=== PATIENT | male | born 1955 | race Caucasian/White ===

== ENCOUNTER → 2021-05-12 | Outpatient (CLI) | payer BC ==
[~2021-05-12] MED LIST: AMLO-186 PO; ASPI-630 PO; OXYC-325 PO; PANT40TA77 PO; RAMI10CA53 PO; SIMV20TA18 PO
== END ==
LOC: LAB 10:13
PROVIDERS: ATTEND Surgery
DX: Z01.812 Encounter for preprocedural laboratory examination (principal); Z20.822 Contact with and (suspected) exposure to COVID-19; K40.90 Unilateral inguinal hernia, without obstruction or gangrene, not specified as recurrent
CPT/HCPCS: U0003; U0005

== ENCOUNTER 2021-05-14 06:15 | Day surgery (SDC) | payer BC ==
[~2021-05-14] VITALS: Ht 182.9 cm; Wt 73.5 kg
[~2021-05-14 06:15] MED LIST changes: +ACETAMINOPHEN 500 MG TABLET PO PRN; -AMLO-186 PO; -ASPI-630 PO; +HYDROmorphone 2 MG/ML VIAL IVP PRN; +IV RINGERS,LACTATED 1000ML 1,000 ML IV SCH; -OXYC-325 PO; -PANT40TA77 PO; +PROCHLORPERAZINE 10 MG/2 ML VIAL. IVP PRN; -RAMI10CA53 PO; -SIMV20TA18 PO; +ceFAZolin SODIUM IV Push 1 GM VIAL. IVP PRN; +fentaNYL PF VIAL 100 MCG/2 ML VIAL IVP PRN
[2021-05-14] MEDS ORDERED: SIMV20TA18 PO (06:45)
[2021-05-14] MEDS ORDERED: PANT40TA77 PO (06:45)
[2021-05-14] MEDS ORDERED: ASPI-630 PO (06:45)
[2021-05-14] MEDS ORDERED: RAMI10CA53 PO (06:45)
[2021-05-14] MEDS ORDERED: AMLO-186 PO (06:45)
[2021-05-14 06:48] VITALS: BP 146/77
[2021-05-14] MEDS ORDERED: BUPIVACAINE-EPI 0.25%-1:200000 MPF 30 ML VIAL. ONE (07:24)
[2021-05-14] MEDS ORDERED: MINERAL OIL for SURGERY 10 ML VIAL. MC ONE (07:24)
[2021-05-14] MEDS ORDERED: fentaNYL PF VIAL 100 MCG/2 ML VIAL ONE ×2 (07:29→08:45)
--- NOTE | 2021-05-14 07:46 | PDOC1 ---
History and Physical Date of Admission Date of Admission DATE: 05/14/21 TIME: 07:44 Identification/Chief Complaint Chief Complaint Left groin pain Source Source: Patient History of Present Illness History of Present Illness 65-year-old male with complaints of left groin pain consistent with a left inguinal hernia Past Medical History Cardiovascular: HTN, Hyperlipidemia Pulmonary: No pertinent hx GI: GERD Heme/Onc: No pertinent hx Hepatobiliary: No pertinent hx Psych: No pertinent hx Rheumatologic: No pertinent hx Infectious disease: No pertinent hx ENT: No pertinent hx Renal/: No pertinent hx Endocrine: No pertinent hx Dermatology: No pertinent hx Past Surgical History Past Surgical History: No pertinent history Family History Family History: No Significant Social History Smoke: No ALCOHOL: none Drugs: None Current Medications Current Medications Current Medications Fentanyl Citrate (Fentanyl 2ml Vial) 25 mcg PRN Q5MIN PRN IVP MILD PAIN 1-3; Start 05/14/21 at 06:00; Stop 05/15/21 at 05:59 Fentanyl Citrate (Fentanyl 2ml Vial) 50 mcg PRN Q5MIN PRN IVP MODERATE PAIN 4- 6; Start 05/14/21 at 06:00; Stop 05/15/21 at 05:59 Morphine Sulfate (Morphine Sulfate) 1 mg PRN Q10MIN PRN IVP SEVERE PAIN 7-10; Start 05/14/21 at 06:00; Stop 05/15/21 at 05:59 Ringer's Solution 1,000 ml @ 30 mls/hr Q24H IV Last administered on 05/14/21at 06:51; Start 05/14/21 at 06:00; Stop 05/14/21 at 17:59 Hydromorphone HCl (Dilaudid) 0.5 mg PRN Q10MIN PRN IVP SEVERE PAIN 7-10, 2nd CHOICE; Start 05/14/21 at 06:00; Stop 05/15/21 at 05:59 Prochlorperazine Edisylate (Compazine) 5 mg PACU PRN PRN IVP NAUSEA, MRX1; Start 05/14/21 at 06:00; Stop 05/15/21 at 05:59 Acetaminophen (Tylenol) 1,000 mg 1X PREOP PRN PO PRIOR TO PROCEDURE Last administered on 05/14/21at 06:51; Start 05/14/21 at 06:00; Stop 05/14/21 at 18:00 Cefazolin Sodium (Ancef) 1 gm 1X PREOP PRN IVP PRIOR TO PROCEDURE; Start 05/13/21 at 16:45 Mineral Oil (Muri-Lube) 10 ml STK-MED ONCE MC ; Start 05/14/21 at 07:24; Stop 05/14/21 at 07:25; Status DC Bupivacaine HCl/ Epinephrine Bitart (Sensorcaine-Epi 0.25%-1:181992 Mpf) 30 ml STK-MED ONCE .ROUTE ; Start 05/14/21 at 07:24; Stop 05/14/21 at 07:25; Status DC Fentanyl Citrate (Fentanyl 2ml Vial) 100 mcg STK-MED ONCE .ROUTE ; Start 05/14/21 at 07:29; Stop 05/14/21 at 07:29; Status DC Active Scripts Active Reported Pantoprazole Sodium (Pantoprazole Sodium) 40 Mg Tablet.dr 40 Mg PO DAILYAC Aspirin 81 Mg Tab.chew 1 Tab PO DAILY Ramipril 10 Mg Capsule 1 Cap PO DAILY 30 Days Simvastatin 20 Mg Tablet 1 Tab PO QHS Amlodipine Besylate 5 Mg Tablet 5 Mg PO DAILY Allergies Allergies: Coded Allergies: No Known Drug Allergies (Unverified , 05/14/21) ROS Genitourinary: YES Pain (Left groin) Physical Exam General: Alert, Oriented X3, Cooperative, No acute distress HEENT: Atraumatic, EOMI Lungs: Clear to auscultation, Normal air movement Heart: RRR, no murmurs Abdomen: Normal bowel sounds, Soft, No tenderness Male Genitals Exam: other (Left inguinal hernia) Rectal Exam: not examined Extremities: No edema Skin: No significant lesion Neuro: Normal speech Psych/Mental Status: Mental status NL Vitals Vitals Vital Signs Date Time Temp Pulse Resp B/P (MAP) Pulse Ox O2 Delivery O2 Flow Rate FiO2 05/14/21 06:48 97.9 72 20 99 97.9 05/14/21 06:36 146/77 Room Air VTE Prophylaxis Ordered VTE Prophylaxis Devices: Yes VTE Pharmacological Prophylaxi: Contraindicated Assessment/Plan Assessment/Plan Left inguinal hernia plan robotic assisted laparoscopic left inguinal hernia repair Justifications for Admission Other Justification AMY ROTH MD May 14, 2021 07:46
[2021-05-14] MEDS ORDERED: ROCURONIUM 50 MG/5 ML VIAL. ONE (07:54)
[2021-05-14] MEDS ORDERED: ONDANSETRON PF 4 MG/2 ML VIAL. ONE (08:26)
[2021-05-14] MEDS ORDERED: LIDOCAINE 1% PF 5 ML VIAL. ONE (08:26)
[2021-05-14] MEDS ORDERED: PROPOFOL 10 MG/ML (20ML) VIAL. IV ONE (08:26)
[2021-05-14] MEDS ORDERED: NEOSTIGMINE METHYLSULFATE 5 MG/5 ML SYRINGE. ONE (08:26)
[2021-05-14] MEDS ORDERED: DEXAMETHASONE SOD PHOS 4 MG/ML VIAL ONE (08:26)
[2021-05-14] MEDS ORDERED: GLYCOPYRROLATE 1 MG/5 ML VIAL. ONE (08:27)
--- NOTE | 2021-05-14 08:45 | PDOC4 ---
Operative Note Operative Note Date: May 14, 2021 at 842 Preoperative diagnosis: Left inguinal hernia Postoperative diagnosis: Same Procedure: Robotic assisted laparoscopic left inguinal hernia repair with mesh Surgeon: Armen Specimen: None Dictation: Patient is a 65-year-old gentleman with a left inguinal hernia. Procedure of robotic assisted laparoscopic left inguinal hernia repair with mesh was explained to the patient detail risk benefits were also discussed including bleeding infection injury to intra-abdominal contents possible necessitating further open operations alternatives to this procedure also discussed with the patient who seemed to understand and gave a verbal written consent to have procedure performed. Patient was taken to the operating room placed in the supine position general anesthesia was initiated once patient was sleeping intubated placed in low lithotomy positioning and his abdomen was prepped and draped usual sterile fashion using ChloraPrep. Area just above the umbilicus was injected with quarter percent Marcaine with epinephrine incision was made 11 blade scalpel and a varies needle was placed within the abdomen creating pneumoperitoneum once this was complete 8 mm ventral port was placed and da Farhan camera's placed within the abdomen which was inspected was noted that there was a left inguinal hernia with some incarcerated omentum. 8 mm da Farhan port was placed in the right midabdomen and an 8 mm ventral port was placed in the left midabdomen the da Farhan robot is brought and docked all port sites surgeon went to the robotic console using a grasper and Endo Wanda scissors the incarcerated omentum was reduced a incision was made in the peritoneum on the left side this carried down using electrocautery to create a inferior flap which reduce the hernia sac and contents. A large Bard 3D max mesh for the left side was then placed over the defect and the peritoneum was then closed over the mesh with a running 2 OV lock absorbable suture. Suture was removed from the abdomen the da Farhan robot was undocked from all port sites the pneumoperitoneum was reduced all ports were removed. All port sites were closed with 4 subcuticular Monocryl Mastisol Steri-Strips and island dressings were applied. Patient was awakened and extubated in the operating room taken to recovery in stable condition all sponge instrument needle counts listed as correct estimated blood loss 5 mL AMY ROTH MD May 14, 2021 08:45
[2021-05-14] MEDS ORDERED: OXYC-325 PO (08:47)
--- NOTE | 2021-05-14 08:48 | DISCH ---
DISCHARGE INSTRUCTIONS Condition on Discharge Condition on Discharge: Stable Activity After Discharge Activity Instructions for Disc: Avoid exertion Other activity instructions: No lifting more than 20 pounds for 2 weeks Diet after Discharge Diet after Discharge: Regular Wound Incision Care Other wound/incision instructi: Kay shower in 24 hours Contacting the after DC Call your doctor for: If your condition worsens Follow-Up Follow up with: Dr. Roth in 2 weeks AMY ROTH MD May 14, 2021 08:48
[2021-05-14] MEDS ORDERED: MORPHINE SULFATE 2 MG/ML INJ. ONE (08:59)
[2021-05-14] MEDS: MORPHINE SULFATE 2 MG/ML INJ. IVP PRN ×2 (09:00→09:14)
[2021-05-14 09:12] VITALS: BP 138/78
[2021-05-14] MEDS ORDERED: HYDROcodone/APAP 5/325MG 1 TAB TABLET PO ONE (09:15)
== END 2021-05-14 09:45 | disposition home or self-care (01) ==
LOC: SURG 06:15 → EDUNIT# 09:30 → SURG 09:45
PROVIDERS: ATTEND Surgery
DX: K40.30 Unilateral inguinal hernia, with obstruction, without gangrene, not specified as recurrent (principal); I10 Essential (primary) hypertension; E78.00 Pure hypercholesterolemia, unspecified; K21.9 Gastro-esophageal reflux disease without esophagitis; Z87.891 Personal history of nicotine dependence; Z79.899 Other long term (current) drug therapy; Z98.890 Other specified postprocedural states
CPT/HCPCS: 49650; A4364; A4930; A6219; C1781; J0690; J1100; J2270; J2405; J2704; J2710; J3010; J3490; S2900; A4657